=== PATIENT | male | born 2000 | race African-American/Black ===

== ENCOUNTER 2025-03-11 05:24 | Emergency (ER) | payer OTHER ==
[~2025-03-11] VITALS: Ht 188 cm; Wt 127.5 kg
[2025-03-11 05:32] VITALS: O2SAT 99
[2025-03-11] MEDS: ONDANSETRON 4MG ODT PO STA (06:37)
[2025-03-11] MEDS: MAGNESIUM/ALUMINUM HYDROXIDE/SIMETHICONE 30ML UDC PO STA (06:37)
[2025-03-11] MEDS: DICYCLOMINE 10 MG/5 ML ORAL SYR PO STA (06:45)
[2025-03-11 07:41] LABS: BASOPHILS % 0.3 % (0.0-2.0); EOSINOPHILS % 0.1 % (0.0-5.0); HEMATOCRIT. 42.3 % (42.0-52.0); HEMOGLOBIN. 14.1 g/dL (14.0-18.0); LYMPHOCYTES % 11.1 % (20.0-50.0); MEAN CORPUSCULAR HEMOGLOBIN 29.6 pg (28.0-32.0); MEAN CORPUSCULAR HGB CONC 33.3 g/dL (31.0-37.0); MEAN CORPUSCULAR VOLUME 88.8 fL (80.0-94.0); MEAN PLATELET VOLUME 9.6 fl (7.4-10.4); NEUTROPHILS % 82.5 % (40.0-76.0); PLATELET 259 x1000/uL (130-400); RED BLOOD CELL COUNT 4.77 mill/uL (4.7-6.1); RED CELL DISTRIBUTION WIDTH 12.7 % (11.6-14.6); WHITE BLOOD COUNT 8.9 x1000/uL (4.5-11.0)
[2025-03-11 07:52] LABS: CHLORIDE 103 mEq/L (98-107); POTASSIUM 4.2 mEq/L (3.5-5.1); SODIUM 143 mEq/L (136-145)
[2025-03-11 07:53] LABS: CALCIUM 9.4 mg/dL (8.7-10.4); CARBON DIOXIDE 32 mEq/L (21-32)
[2025-03-11 07:58] LABS: CREATININE 1.1 mg/dL (0.6-1.3); GLUCOSE 113 mg/dL (70-105); UREA NITROGEN BLOOD 10 mg/dL (9-23)
[2025-03-11 08:00] LABS: ALANINE AMINOTRANSFERASE 23 IU/L (10-49); ALBUMIN 4.8 g/dL (3.2-4.8); ASPARTATE AMINOTRANSFERASE 19 IU/L (<34); PROTHROMBIN TIME 10.9 sec (9.6-11.0)
[2025-03-11 08:01] LABS: BILIRUBIN DIRECT 0.2 mg/dL (<=3.0); BILIRUBIN TOTAL 0.5 mg/dL (0.1-1.0); PROTEIN TOTAL 7.6 g/dL (6.0-8.3)
[2025-03-11 08:10] LABS: CLARITY URINE CLEAR (CLEAR); COLOR URINE YELLOW (YELLOW); GLUCOSE URINE NEGATIVE (NEGATIVE); KETONES URINE NEGATIVE (NEGATIVE); LEUKOCYTE ESTERASE URINE NEGATIVE (NEGATIVE); NITRITE URINE NEGATIVE (NEGATIVE); OCCULT BLOOD URINE 3+ (NEGATIVE); PROTEIN URINE TRACE (NEGATIVE); SPECIFIC GRAVITY URINE 1.019 (1.005-1.030)
[2025-03-11] MEDS ORDERED: TOPUD PO (08:30)
[2025-03-11 08:45] VITALS: BP 118/65; PULSE 58; RESP 14; TEMP 37; O2SAT 99
[2025-03-11 09:08] LABS: RBC URINE 15-25 /hpf (0-2)
[2025-03-11 09:09] LABS: BACTERIA URINE TRACE; WBC URINE 0-2 /hpf (0-2)
[2025-03-11 09:10] LABS: COARSE GRANULAR CASTS URINE 0-5 /lpf
[2025-03-11 09:16] LABS: FINE GRANULAR CASTS URINE 0-5 /lpf; HYALINE CASTS URINE 0-5 /lpf
== END 2025-03-11 08:45 | disposition home or self-care (01) ==
LOC: ER 05:24
DX: K80.00 Calculus of gallbladder with acute cholecystitis without obstruction (principal)
CPT/HCPCS: 80076; 80048; 81003; 83690; 85025; 85610; 36415; 76705; 99284; Q0162; Z7610 ×4